=== PATIENT | female | born 1990 | race Caucasian/White ===

== ENCOUNTER 2022-02-03 14:41 | Emergency (ER) | payer BC, MEDICAID, SELFPAY ==
[2022-02-03 14:46] VITALS: BP 159/106; PULSE 107; RESP 16; TEMP 36.9; O2SAT 99
--- NOTE | 2022-02-03 16:41 | W.ED.GENADLT ---
HPI - General Adult General: Chief complaint: General Medical Stated complaint: states, here for medicine Time Seen by Provider: 02/03/22 16:36 History of Present Illness: Patient is a 31-year-old female comes to the ED for a mental health evaluation. Patient states she is currently at [facility] and they have her on Prozac She has been at [facility] for approximately 1 month. She says the Prozac has not been helping her anxiety. They sent her here to the ED to be reevaluated. Patient denies any SI, HI or any hallucinations. Denies any other symptoms and is feeling normal. Associated symptoms: Deny chest pain, dyspnea, headache(s), nausea, rash, palpitations or vomiting Review of Systems Const: Denies: fever(s), chills or fatigue Eyes: Denies: change in vision or eye discomfort ENMT: Denies: throat pain, odynophagia, nasal discharge or nasal congestion Card: Denies: chest pain, palpitations, edema, swelling of feet/ankles, dyspnea on exertion or orthopnea Resp: Denies: dyspnea, productive cough or non-productive cough GI: Denies: abdominal pain, nausea, vomiting, diarrhea, constipation or hematochezia : Denies: flank pain, dysuria or hematuria Musc: Denies: neck pain, back pain or extremity swelling Skin/Breast: Denies: rash or new lesions Neuro: Denies: headache(s), numbness in extremities or weakness in extremities Psych: Reports: anxiety; Denies: visual hallucinations, auditory hallucinations, suicidal ideation or homicidal ideation [facility] ED PFSH: Medical History No pertinent family history Surgical History No pertinent past surgical history Physical Exam Const: COMMON NORMALS: no acute distress, patient oriented x3 and alert GENERAL APPEARANCE: cooperative and comfortable HENMT: COMMON NORMALS: normocephalic HEAD & SCALP: normocephalic MOUTH: Normal oral and palatal mucosa present THROAT: posterior oropharynx normal and uvula midline Neck/C-Spine: COMMON NORMALS: supple GENERAL: Yes normal visual inspection Resp: COMMON NORMALS: normal respiratory effort, No retractions, No use of accessory muscles and clear to auscultation bilaterally AUSCULTATION: clear to auscultation bilaterally Cardio: COMMON NORMALS: regular rate, regular rhythm, S1 normal heart sound present, S2 normal heart sound present, No gallops present (Cardio), No clicks present (Cardio), No murmurs present (Cardio) and Peripheral pulses 2+ throughout RATE: regular rate RHYTHM: regular rhythm HEART SOUNDS: S1 normal heart sound present and S2 normal heart sound present PERIPHERAL PULSES: Peripheral pulses 2+ throughout GI: COMMON NORMALS: Normal to inspection, nondistended, normoactive bowel sounds present, Soft to palpation, non-tender and no masses PALPATION: Yes Soft to palpation : COMMON NORMALS: Yes no CVA tenderness BLADDER/KIDNEY EXAM: Yes no CVA tenderness Back/Pelvis: COMMON NORMALS: no CVA tenderness Extremity: COMMON NORMALS: normal to inspection Neuro: COMMON NORMALS: patient oriented x3 SENSORIUM/ORIENTATION: Yes alert GAIT: Yes Normal gait present Psych: COMMON NORMALS: mental status grossly normal, Normal thought process present, cooperative, normal affect, speech normal, activity/motor behavior normal, denies hallucinations, denies homicidal ideation and denies suicidal ideation SPEECH: Yes normal speech THOUGHT PROCESS: Normal thought process present Skin: GENERAL SKIN EXAM: dry skin Course Vital Signs: Vital signs: Vital Signs Temperature 98.5 F 02/03/22 14:46 Pulse Rate 107 H 02/03/22 14:46 Respiratory Rate 16 02/03/22 14:46 Blood Pressure 159/106 02/03/22 14:46 Pulse Oximetry 99 02/03/22 14:46 Oxygen Delivery Me thod 02/03/22 14:46 MDM - General Adult Medical Decision Making Patient is a 31-year-old female comes to the ED for psych evaluation. She denies any HI, SI or hallucinations. She has been taking Prozac since she has been at [facility] and it has not been helping with her anxiety. [facility] center here for evaluation. Vitals are stable. Exam of patient is benign and she appears in no acute distress or pain. She was stable for discharge home and diagnosed with anxiety. She was sent home with a prescription for Vistaril to help with any acute anxiety. Told to follow-up with her PCP within the next week for reevaluation. Patient understood and agreed with plan. Discharge Plan Discharge Patient Disposition: Home Clinical Impression: Anxiety Condition: Stable Prescriptions: New Vistaril 50 mg capsule 50 mg PO Q8H PRN (Reason: acute anxiety) Qty: 30 0RF Discharge Orders: Discharge ED (Routine); Ordered 02/03/22 Ordered By: Smith Edwards Discharge Diet: Regular Discharge Activity: Increase activity as tolerated Patient Instructions: Anxiety (ED) Activity Restrictions/Additional Instructions: Follow-up with medical provider as directed in the next 7-10 days for reevaluation. Take medications as prescribed. Return to the ER or your medical provider if condition worsens. Please read and understand discharge instructions. Thank you for choosing [facility] for your healthcare needs today. Please realize this is an emergency room and that we are providing you with a medical screening exam and this may not be complete and all inclusive of all the testing and or work up that you may need to determine your ailment or severity of your illness. It is very important that you follow up as instructed or that you return to the Emergency Department should you have concerns or if your condition changes or worsens in any way. Coding Level of Care Code ED Automotive Technician for Jayson Bowie Exam Comprehensive
== END 2022-02-03 17:15 | disposition home or self-care (01) ==
PROVIDERS: Emergency Provider Physician Assistant
DX: F41.9 Anxiety disorder, unspecified (principal)
CPT/HCPCS: 99283

== ENCOUNTER 2022-02-04 16:46 | Inpatient (IN) | payer BC, SELFPAY ==
[2022-02-04 16:52] VITALS: BP 145/100; PULSE 89; RESP 18; TEMP 36.8; O2SAT 97; BMI 21.6
--- NOTE | 2022-02-04 17:10 | W.ED.PSYCHS ---
HPI - Psych General: Chief Complaint: Psychiatric Symptoms Stated Complaint: 96 Hour Hold Time Seen by Provider: 02/04/22 16:51 History of Present Illness: Patient comes in from the rehab facility with a 96-hour court ordered hold. The patient is in rehab, and per the notes has been talking about her being the hands and feet of the man . Apparently the patient states that if the man tells her to hurt somebody or hurt herself she will have to do it because she is scared of them. This behavior is off and on from 1 day to the next. The patient denies suicidal or homicidal ideation. She has angry as she does not think she needs to be here. She does state that the staff over there are out to get her, which is another concern of theirs as the patient makes comments like this periodically. Review of Systems Const: Denies: fever(s) or body aches Eyes: Denies: change in vision or blurry vision ENMT: Denies: throat pain or odynophagia Card: Denies: chest pain or palpitations Resp: Denies: dyspnea or productive cough GI: Denies: abdominal pain, nausea or vomiting : Denies: flank pain or dysuria Musc: Denies: neck pain or back pain Skin/Breast: Denies: rash or pruritus Neuro: Denies: headache(s) or numbness in extremities Psych: Reports: mood swings; Denies: change in appetite Endo: Denies: polyuria or excessive sweating [facility] ED PFSH: Medical History No pertinent family history Surgical History No pertinent past surgical history Physical Exam Const: COMMON NORMALS: no acute distress, patient oriented x3, healthy appearing and alert HENMT: COMMON NORMALS: normocephalic and atraumatic HEAD & SCALP: normocephalic and atraumatic Eye: COMMON NORMALS: Equal, round and reactive pupils present and EOMs intact bilaterally PUPIL: Yes Equal, round and reactive pupils present Neck/C-Spine: COMMON NORMALS: full ROM and supple Resp: COMMON NORMALS: normal respiratory effort, No retractions and No use of accessory muscles Cardio: COMMON NORMALS: regular rate and regular rhythm RATE: regular rate RHYTHM: regular rhythm GI: COMMON NORMALS: Normal to inspection, nondistended, normoactive bowel sounds present, Soft to palpation and non-tender PALPATION: Yes Soft to palpation Back/Pelvis: COMMON NORMALS: thoracic and lumbar spine normal to inspection and no thoracic nor lumbar tenderness Extremity: COMMON NORMALS: normal to inspection and full ROM Neuro: COMMON NORMALS: patient oriented x3 SENSORIUM/ORIENTATION: Yes alert Psych: COMMON NORMALS: mental status grossly normal, cooperative, denies homicidal ideation and denies suicidal ideation OTHER: Patient is angry but cooperative Skin: COMMON NORMALS: no rashes or lesions noted and no wounds GENERAL SKIN EXAM: no rashes or lesions noted Course Vital Signs: Vital signs: Vital Signs Temperature 98.2 F 02/04/22 16:52 Pulse Rate 89 02/04/22 16:52 Respiratory Rate 18 02/04/22 16:52 Blood Pressure 145/100 02/04/22 16:52 Pulse Oximetry 97 02/04/22 16:52 Oxygen Delivery Me thod 02/04/22 16:52 [facility] - Psych Medical Decision Making Patient comes in from the rehab facility with a 96-hour court ordered hold. The patient is in rehab, and per the notes has been talking about her being the hands and feet of the man . Apparently the patient states that if the man tells her to hurt somebody or hurt herself she will have to do it because she is scared of them. This behavior is off and on from 1 day to the next. The patient denies suicidal or homicidal ideation. She has angry as she does not think she needs to be here. She does state that the staff over there are out to get her, which is another concern of theirs as the patient makes comments like this periodically. Will check labs, consult psych, and reassess. On reassessment I talked to the patient about the test results. We will start her on metronidazole for trichomonas. I discussed the case with psychiatry and we will admit for further work-up and treatment. Lab Data 02/04/22 17:24 02/04/22 17:24 Laboratory Results WBC 9.6 10^3/uL (4.0-10.0) 02/04/22 17:24 RBC 4.10 10^6/uL (4.1-5.3) 02/04/22 17:24 Hgb 13.6 g/dL (11.5-15.3) 02/04/22 17: Hct 41.7 % (37.0-47.0) 02/04/22 17: MCV 101.7 fl (81-99) H 02/04/22 17:24 MCH 33.2 pg (28.0-34.0) 02/04/22 17: MCHC 32.6 g/dL (30.0-36.0) 02/04/22 17: RDW 12.2 % (12.1-15.1) 02/04/22 17: Plt Count 364 10^3/cmm (130-400) 02/04/22 17: MPV 9.8 fL (7.4-10.4) 02/04/22 17: Neut % (Auto) 51.5 % 02/04/22 17: Lymph % (Auto) 39.3 % 02/04/22 17: [place] % (Auto) 6.3 % 02/04/22: Eos % (Auto) 2.1 % 02/04/22 17: Baso % (Auto) 0.6 % 02/04/22 17: Neut # (Auto) 4.94 10^3/uL (1.8-7.7) 02/04/22: Lymph # (Auto) 3.8 10^3/uL (0.8-4.8) 02/04/22 17:24 [place] # (Auto) 0.6 10^3/uL (0.2-0.9) 02/04/22: Eos # (Auto) 0.2 10^3/uL (0.0-0.8) 02/04/22 17: Baso # (Auto) 0.1 10^3/uL (0.0-0.1) 02/04/22: Nucleated RBC % (auto) 0 % 02/04/22: Nucleated RBCs # 0.0 /100WBC 02/04/22 17:24 Sodium 139 mmol/L (136-145) 02/04/22 17:24 Potassium 4.4 mmol/L (3.5-5.1) 02/04/22 17: Chloride 102 mmol/L (98-107) 02/04/22 17:24 Carbon Dioxide 29 mmol/L (22-29) 02/04/22 17:24 Anion Gap 12.4 (5-19) 02/04/22 17:24 BUN 12 mg/dL (6-20) 02/04/22 17:24 Creatinine 0.7 mg/dL (0.5-0.9) 02/04/22 17:24 GFR Calculation 96.4 mL/min (90-130) 02/04/22 17:24 Glucose 76 mg/dL (65-115) 02/04/22 17:24 Calculated Osmolality 287 mOsm/kg (285-295) 02/04/22 17:24 Calcium 9.2 mg/dL (8.5-10.5) 02/04/22 17:24 Total Bilirubin 0.3 mg/dL (0.15-1.2) 02/04/22 17:24 AST 13 U/L (0-32) 02/04/22 17:24 ALT 11 U/L (0-33) 02/04/22 17:24 Alkaline Phosphatase 76 U/L (35-105) 02/04/22 17:24 Total Protein 7.1 g/dL (6.6-8.7) 02/04/22 17:24 Albumin 4.5 g/dL (3.5-5.2) 02/04/22 17:24 Globulin 2.6 g/dL (1.3-4.6) 02/04/22 17:24 HCG, Qual Negative (Negative) 02/04/22 19:21 Urine Color Yellow (Yellow) 02/04/22 19:21 Urine Appearance Clear (CLEAR) 02/04/22 19:21 Urine pH 5 (5-7) 02/04/22 19:21 Ur Specific [place] 1.020 (1.005-1.030) 02/04/22 19:21 Urine Protein Neg (Negative) 02/04/22 19:21 Urine Glucose (UA) Norm (Normal) 02/04/22 19:21 Urine Ketones Negative (Negative) 02/04/22 19:21 Urine Blood Trace (Negative) H 02/04/22 19:21 Urine Nitrate Negative (Negative) 02/04/22 19:21 Urine Bilirubin Neg (Negative) 02/04/22 19: Urine Urobilinogen Norm mg/dL (Negative) 02/04/22 19:21 Ur Leukocyte Esterase 2+ (Negative) H 02/04/22 19:21 Urine RBC 0-4 /hpf (0-2) H 02/04/22 19:21 Urine WBC 5-10 /hpf (0-5) H 02/04/22 19:21 Ur Squamous Epith Cells 5-10 /hpf (0-5) H 02/04/22 19:21 Amorphous Sediment Not Reportable 02/04/22 19:21 Urine Bacteria 3+ /hpf (NONE) H 02/04/22 19:21 Urine Trichomonas 2+ /hpf H 02/04/22 19:21 Salicylates < 0.3 mg/dL (3-10) L 02/04/22 17:24 Urine Opiates Screen Negative ng/mL (Negative) 02/04/22 19:21 Acetaminophen < 5.0 ug/mL (10-30) L 02/04/22 17:24 Ur Barbiturates Screen Negative ng/mL (Negative) 02/04/22 19:21 Ur Phencyclidine Scrn Negative ng/mL (Negative) 02/04/22 19:21 Ur Amphetamines Screen Negative ng/mL (Negative) 02/04/22 19:21 U Benzodiazepines Scrn Negative ng/mL (Negative) 02/04/22 19:21 Urine Cocaine Screen Negative ng/mL (Negative) 02/04/22 19:21 U Marijuana (THC) Screen Negative ng/mL (Negative) 02/04/22 19:21 Ethyl Alcohol < 10 mg/dL (0-10) 02/04/22 17:24 SARS-CoV-2 Ag (Rapid) negative (Negative) 02/04/22 19:20 Discharge Plan Discharge Patient Disposition: Admitted As Inpatient Clinical Impression: Acute psychosis, Infection due to trichomonas Condition: Stable Prescriptions: No Action Vistaril 50 mg capsule 50 mg PO Q8H PRN (Reason: acute anxiety) Qty: 30 0RF Coding Level of Care Code ED Electronic Communications Technician for Chg Fwd Exam Comprehensive
[2022-02-04 17:36] LABS: Basophils # 0.1 10^3/uL (0.0-0.1); Basophils % 0.6 %; Eosinophils # 0.2 10^3/uL (0.0-0.8); Eosinophils % 2.1 %; Hematocrit 41.7 % (37.0-47.0); Hemoglobin 13.6 g/dL (11.5-15.3); Lymphocytes # 3.8 10^3/uL (0.8-4.8); Lymphocytes % 39.3 %; Mean Corpuscular HGB Conc 32.6 g/dL (30.0-36.0); Mean Corpuscular Hemoglobin 33.2 pg (28.0-34.0); Mean Corpuscular Volume 101.7 fl (81-99); Mean Platelet Volume 9.8 fL (7.4-10.4); Monocytes # 0.6 10^3/uL (0.2-0.9); Monocytes % 6.3 %; Neutrophils # 4.94 10^3/uL (1.8-7.7); Neutrophils % 51.5 %; Nucleated Red Blood Cells % 0 %; Platelet Count 364 10^3/cmm (130-400); Red Cell Distribution Width 12.2 % (12.1-15.1); White Blood Count 9.6 10^3/uL (4.0-10.0)
[2022-02-04 17:55] LABS: Alanine Aminotransferase 11 U/L (0-33); Albumin Level 4.5 g/dL (3.5-5.2); Alkaline Phosphatase 76 U/L (35-105); Anion Gap 12.4 (5-19); Aspartate Amino Transferase 13 U/L (0-32); Blood Urea Nitrogen 12 mg/dL (6-20); Calcium 9.2 mg/dL (8.5-10.5); Carbon Dioxide 29 mmol/L (22-29); Chloride 102 mmol/L (98-107); Globulin 2.6 g/dL (1.3-4.6); Glomerular Filtration Rate 96.4 mL/min (90-130); Glucose 76 mg/dL (65-115); Osmolality Calculated 287 mOsm/kg (285-295); Potassium 4.4 mmol/L (3.5-5.1); Sodium 139 mmol/L (136-145); Total Bilirubin 0.3 mg/dL (0.15-1.2); Total Protein 7.1 g/dL (6.6-8.7)
[2022-02-04 18:02] LABS: Acetaminophen < 5.0 ug/mL (10-30); Alcohol Level < 10 mg/dL (0-10); Salicylate < 0.3 mg/dL (3-10)
[2022-02-04 19:45] LABS: HCG Qualitative Urine. Negative (Negative)
[2022-02-04 19:48] LABS: Amphetamines Screen Urine Negative (Negative); Barbiturates Screen Urine Negative (Negative); Benzodiazepines Screen Urine Negative (Negative); Cocaine Screen Urine Negative (Negative); Opiate Screen Urine Negative (Negative); PCP Screen Urine Negative (Negative); THC Screen Urine Negative (Negative)
[2022-02-04 19:50] LABS: Add Urine Microscopic? YES; Bacteria Urine 3+ /hpf; Bilirubin Urine Neg (Negative); Blood Urine Trace (Negative); Glucose Urine UA Norm (Normal); Ketones Urine Negative (Negative); Leukocyte Esterase Urine 2+ (Negative); Nitrate Urine Negative (Negative); Protein Urine Neg (Negative); RBC Urine 0-4 /hpf (0-2); Trichomonas Urine 2+ /hpf; Urine Appearance Clear (CLEAR); Urine Color Yellow (Yellow); Urobilinogen Urine Norm (Negative); pH Urine 5 (5-7)
[2022-02-04 19:51] LABS: Add Urine Culture? Yes
[2022-02-04 19:56] LABS: SARS Covid-2 Antigen negative (Negative)
[2022-02-04 20:28] VITALS: BP 153/99; PULSE 90; RESP 14
[2022-02-04] MEDS: metroNIDAZOLE 500 MG Tablet PO (20:38)
[2022-02-04 21:00] VITALS: RESP 16
[2022-02-04 22:10] VITALS: RESP 15
[2022-02-04 22:27] VITALS: BP 135/100; PULSE 94; RESP 18; TEMP 36.7; O2SAT 98
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
[2022-02-05 14:00] VITALS: BP 122/76; PULSE 79; RESP 16; TEMP 36.7; O2SAT 97
[2022-02-05] MEDS: quetiapine 100 mg Tablet 200 MG PO (20:13)
[2022-02-05 20:31] VITALS: BP 139/86; PULSE 87; RESP 16; TEMP 36.6; O2SAT 98
[2022-02-06 06:00] VITALS: RESP 16
[2022-02-06] MEDS: metroNIDAZOLE 500 MG Tablet PO ×2 (12:01→21:16)
[2022-02-06 14:00] VITALS: BP 130/86; PULSE 84; RESP 16; TEMP 36.6; O2SAT 98
--- NOTE | 2022-02-06 16:55 | W.PM.NPUPNS ---
Subjective NPU Subjective: Patient presented today reporting that she is feeling better on medication that initiated. She felt very disorganized story about how he got to [facility] and then ultimately it was forthcoming on her stimulant/cocaine/methamphetamine challenges but was very dismissive and downplaying of the the circumstances that led to her being at [facility]. She did not plan to return to timely once she was stabilized. We discussed trying to understand her history a bit more. She denied history of or current psychosis but seems to be having some thought disorder. Mental Status Exam MSE Comments: This is a slender white female in hospital scrubs with limited grooming and eye contact. No abnormal movements except for mild psychomotor agitation. Somewhat cooperative with exam in no acute distress with a somewhat laissez-faire attitude. Speech was mostly normal rate and decreased volume. Mood described as okay, affect. Thought process linear. Thought content: Patient denied suicidal or homicidal ideation, there are no delusions reported with concern for paranoia existed, she denied auditory hallucinations or history thereof. Attention and concentration was limited but appeared improving and memory was unreliable but none were formally tested. Alert and oriented x3. Insight, judgment and impulse control appeared impaired. Vitals/I&O/Wt Last Vital Signs Temp 98.2 F 02/06/22 20:40 Pulse 83 02/06/22 20:40 Resp 16 02/06/22 20:40 BP 149/89 02/06/22 20:40 Pulse Ox 99 02/06/22 20:40 O2 Del Method 02/06/22 20:40 Data NPU 02/04/22 17:24 02/04/22 17:24 Micro: Microbiology 02/04/22 19:21 Urine Culture - Preliminary Urine,Clean Catch Microbiology 02/04/22 19:21 Urine,Clean Catch Urine Culture - Preliminary A&P Assessment and plan (1) Bipolar disorder, unspecified: (2) Methamphetamine abuse: Plan Patient is a 31-year-old white female with a history of stimulant abuse currently at the [facility] with reports of increased irritability poor frustration tolerance and agitation with possible hypomania currently endorsing increased anger and sleep disruption. Patient will continue to require acute inpatient hospitalization with medication adjustments planned. 1.? D/C Prozac, Start Seroquel 200mg at night, 2.? Encourage individual, group and milieu therapy 3.? Continue q-15 minute check for safety 4.? Recommend sober living treatment at the highest level of care to which the patient is willing to commit. Attestations NPU Medical Necessity Statement*: Inpatient hospitalization is medically necessary and the clinically appropriate intervention at this time. We will monitor medications and make changes as indicated. Likely length of stay 4-6 days. Coding Level of Care Code Acute Motivational Speaker for [facility] Fwd Diagnoses Bipolar disorder, unspecified F31.9 Methamphetamine abuse F15.10
[2022-02-06 20:40] VITALS: BP 149/89; PULSE 83; RESP 16; TEMP 36.8; O2SAT 99
[2022-02-06] MEDS: quetiapine 100 mg Tablet 200 MG PO (21:16)
[2022-02-07 06:00] VITALS: BP 126/88; PULSE 86; RESP 16; TEMP 36.3; O2SAT 100
[2022-02-07] MEDS: metroNIDAZOLE 500 MG Tablet PO ×2 (08:26→17:34)
--- NOTE | 2022-02-07 13:36 | W.PM.NPUPNS ---
Subjective NPU Subjective: Patient returns today reporting that she is feeling a little better. She expressed some feeling paranoid beliefs that she is being held on a hold until Thursday and so there is no way that she could be released before then. We did discuss that we were attending communicating her needs to collaborate with them on her return and that Thursday is the more likely date of that return. She reports that the medication is working well and she is sleeping better. She discussed a fairly na?ve thought about her sobriety and returning home to the [facility] with a elvia who also struggles with addiction. She cannot really articulate how her addiction was reportedly not that bad but she seems to be required to return to [facility]. Mental Status Exam MSE Comments: This is a slender white female in hospital scrubs with limited grooming and eye contact. No abnormal movements except for mild psychomotor agitation. Somewhat cooperative with exam in no acute distress with a somewhat laissez-faire attitude. Speech was mostly normal rate and decreased volume with a very strong accent. Mood described as okay, affect congruent. Thought process linear. Thought content: Patient denied suicidal or homicidal ideation, there are no delusions reported with concern for paranoia existed, she denied auditory hallucinations or history thereof. Attention and concentration was limited but appeared improving and memory was unreliable but none were formally tested. Alert and oriented x3. Insight, judgment and impulse control appeared impaired. Vitals/I&O/Wt Last Vital Signs Temp 97.4 F L 02/07/22 06:00 Pulse 86 02/07/22 06:00 Resp 16 02/07/22 06:00 BP 126/88 02/07/22 06:00 Pulse Ox 100 02/07/22 06:00 O2 Del Method 02/07/22 06:00 Data NPU 02/04/22 17:24 02/04/22 17:24 Micro: Microbiology 02/04/22 19:21 Urine Culture - Final Urine,Clean Catch Microbiology 02/04/22 19:21 Urine,Clean Catch Urine Culture - Final A&P Assessment and plan (1) Bipolar disorder, unspecified: (2) Methamphetamine abuse: Plan Patient is a 31-year-old white female with a history of stimulant abuse currently at the [facility] with reports of increased irritability poor frustration tolerance and agitation with possible hypomania currently endorsing increased anger and sleep disruption. Patient will continue to require acute inpatient hospitalization with medication adjustments planned. 1.? D/C'd Prozac, Started Seroquel 200mg at night, 2.? Encourage individual, group and milieu therapy 3.? Continue q-15 minute check for safety 4.? Recommend sober living treatment at the highest level of care to which the patient is willing to commit. Attestations NPU Medical Necessity Statement*: Inpatient hospitalization is medically necessary and the clinically appropriate intervention at this time. We will monitor medications and make changes as indicated. Likely length of stay 3-5 days. Coding Level of Care Code Acute Research Associate Policy for g Fwd Diagnoses Bipolar disorder, unspecified F31.9 Methamphetamine abuse F15.10
[2022-02-07 14:00] VITALS: BP 144/86; PULSE 70; RESP 18; TEMP 36.8; O2SAT 99
[2022-02-07 19:40] VITALS: BP 152/99; PULSE 83; RESP 17; TEMP 36.7; O2SAT 98
[2022-02-07] MEDS: quetiapine 100 mg Tablet 200 MG PO (20:36)
[2022-02-08 06:00] VITALS: BP 125/87; PULSE 82; RESP 16; TEMP 36.6; O2SAT 100
[2022-02-08] MEDS: metroNIDAZOLE 500 MG Tablet PO ×2 (08:46→17:33)
--- NOTE | 2022-02-08 11:37 | W.PM.NPUPNS ---
Subjective NPU Subjective: Patient presents today seeming to be in better spirits. She reports she is eating and sleeping better and is prepared to return to [facility] on Thursday. She denies any new concerns and certainly seemed less confused and more cogent. She denies any issues with medications. Mental Status Exam MSE Comments: This is a slender white female in hospital scrubs with limited grooming and eye contact. No abnormal movements except for mild psychomotor agitation. Somewhat cooperative with exam in no acute distress with a somewhat laissez-faire attitude. Speech was mostly normal rate and decreased volume with a very strong accent. Mood described as fine, affect congruent. Thought process linear and organized. Thought content: Patient denied suicidal or homicidal ideation, there are no delusions reported, but concern for paranoia existed, she denied auditory or visual hallucinations or history thereof. Attention and concentration was improving and memory was feeling more reliable but none were formally tested. Alert and oriented x3. Insight and judgment are improving and impulse control appeared limited, but improving. Vitals/I&O/Wt Last Vital Signs Temp 97.8 F 02/08/22 06:00 Pulse 82 02/08/22 06:00 Resp 16 02/08/22 06:00 BP 125/87 02/08/22 06:00 Pulse Ox 100 02/08/22 06:00 O2 Del Method 02/07/22 06:00 Data NPU 02/04/22 17:24 02/04/22 17:24 Micro: Microbiology 02/04/22 19:21 Urine Culture - Final Urine,Clean Catch Microbiology 02/04/22 19:21 Urine,Clean Catch Urine Culture - Final A&P Assessment and plan (1) Bipolar disorder, unspecified: (2) Methamphetamine abuse: Plan Patient is a 31-year-old white female with a history of stimulant abuse currently at the [facility] with reports of increased irritability poor frustration tolerance and agitation with possible hypomania currently endorsing increased anger and sleep disruption. Patient will continue to require acute inpatient hospitalization with medication adjustments planned. 1.? D/C'd Prozac, Started Seroquel 200mg at night, 2.? Encourage individual, group and milieu therapy 3.? Continue q-15 minute check for safety 4.? Recommend sober living treatment at the highest level of care to which the patient is willing to commit. Attestations NPU Medical Necessity Statement*: Inpatient hospitalization is medically necessary and the clinically appropriate intervention at this time. We will monitor medications and make changes as indicated. Likely length of stay 2-4 days. Coding Level of Care Code Acute Limnologist for g Fwd Diagnoses Bipolar disorder, unspecified F31.9 Methamphetamine abuse F15.10
[2022-02-08 14:00] VITALS: BP 143/83; PULSE 85; RESP 16; TEMP 36.6; O2SAT 100
[2022-02-08 19:56] VITALS: BP 154/112; PULSE 78; RESP 20; TEMP 36.6; O2SAT 99
[2022-02-08] MEDS: quetiapine 100 mg Tablet 200 MG PO (21:59)
[2022-02-09 06:00] VITALS: BP 118/83; PULSE 95; RESP 16; TEMP 37; O2SAT 98
[2022-02-09] MEDS: metroNIDAZOLE 500 MG Tablet PO ×2 (08:39→18:38)
--- NOTE | 2022-02-09 13:40 | W.PM.NPUPNS ---
Subjective NPU Subjective: Patient presents today reporting that things are going okay. She reports an openness to return to [facility] and report that she is feeling ready to do so. We agreed we work with the treatment team in the morning to contact currently and see where they are with her return. She is sleeping well and eating fine and denying any issues or concerns. Mental Status Exam MSE Comments: This is a slender white female in hospital scrubs with limited grooming and eye contact. No abnormal movements except for mild psychomotor agitation. Somewhat cooperative with exam in no acute distress with a somewhat laissez-faire attitude. Speech was mostly normal rate and decreased volume with a very strong accent. Mood described as fine, affect congruent. Thought process linear and organized. Thought content: Patient denied suicidal or homicidal ideation, there are no delusions reported or noted, she denied auditory or visual hallucinations or history thereof. Attention and concentration was improving and memory was feeling more reliable but none were formally tested. Alert and oriented x3. Insight and judgment are improving and impulse control appeared limited, but improving. Vitals/I&O/Wt Last Vital Signs Temp 98.6 F 02/09/22 06:00 Pulse 95 02/09/22 06:00 Resp 16 02/09/22 06:00 BP 118/83 02/09/22 06:00 Pulse Ox 98 02/09/22 06:00 O2 Del Method 02/09/22 06:00 Weight last 48 hrs Weight 63.957 kg Data NPU 02/04/22 17:24 02/04/22 17:24 A&P Assessment and plan (1) Bipolar disorder, unspecified: (2) Methamphetamine abuse: Plan Patient is a 31-year-old white female with a history of stimulant abuse currently at the [facility] with reports of increased irritability poor frustration tolerance and agitation with possible hypomania currently endorsing increased anger and sleep disruption. Patient will continue to require acute inpatient hospitalization with medication adjustments planned. 1.? D/C'd Prozac, Started Seroquel 200mg at night, 2.? Encourage individual, group and milieu therapy 3.? Continue q-15 minute check for safety 4.? Recommend sober living treatment at the highest level of care to which the patient is willing to commit. Attestations NPU Medical Necessity Statement*: Inpatient hospitalization is medically necessary and the clinically appropriate intervention at this time. We will monitor medications and make changes as indicated. Likely length of stay 1-3 days. Coding Level of Care Code Acute Color Making Supervisor for [facility] Fwd Diagnoses Bipolar disorder, unspecified F31.9 Methamphetamine abuse F15.10
[2022-02-09 14:00] VITALS: BP 154/103; PULSE 88; RESP 16; TEMP 36.6; O2SAT 97
[2022-02-09] MEDS: quetiapine 100 mg Tablet 200 MG PO (20:49)
[2022-02-09 21:19] VITALS: BP 159/101; PULSE 92; RESP 16; TEMP 36.8; O2SAT 99
[2022-02-10 06:00] VITALS: BP 136/88; PULSE 94; RESP 16; TEMP 36.7; O2SAT 99
[2022-02-10] MEDS: metroNIDAZOLE 500 MG Tablet PO (08:41)
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
[2022-02-10 12:31] VITALS: BP 136/88; PULSE 94; RESP 16; TEMP 36.7; O2SAT 99
[2022-02-10 13:56] VITALS: BP 136/88; PULSE 94; RESP 16; TEMP 36.7; O2SAT 99
== END 2022-02-10 14:15 | disposition home or self-care (01) | DRG 885 ==
LOC: ER 20:31 → NP 21:15
PROVIDERS: Admitting Provider Psychiatry & Neurology Psychiatry; Emergency Provider Emergency Medicine; Visit Provider Psychiatry & Neurology Psychiatry
DX: F31.9 Bipolar disorder, unspecified (principal); F15.11 Other stimulant abuse, in remission
CPT/HCPCS: 80053; 80306; 80307; 81001; 81025; 85025; 87086; 87426; 97150; 97165; 99285

== ENCOUNTER 2023-09-25 12:35 | Emergency (ER) | payer MEDICAID, SELFPAY ==
[2023-09-25 13:24] VITALS: BP 151/110; PULSE 108; RESP 16; TEMP 36.6; O2SAT 98
--- NOTE | 2023-09-25 13:53 | PC.NURSE ---
pt placed in vertical flow by direction of charge nurse. pt denies SI/HI at this time. suicide precautions were not taken due to not having the appropriate set up in vertical flow.
--- NOTE | 2023-09-25 15:12 | ED.C_ITS ---
Documented by User: DILCIA Alfred 09/25/23 15:17 HPI - Psych General: Chief Complaint: Psychiatric Symptoms Stated Complaint: Depression Time Seen by Provider: 09/25/23 14:15 Source: patient Mode of arrival: ambulatory Limitations: no limitations History of Present Illness: Patient is a 33-year-old female who presents the emergency department from [facility] due to worsening depression and issues with sleep. Patient states that she was told to come to the emergency department for changes of her psychiatric meds. She sees psychiatrist via telehealth weekly, who prescribes her medications. At this time she is on bupropion as well as topiramate and olanzapine prescribed to her for sleeping. She is not suicidal or homicidal at this time and does not endorse any hallucinations, and she stresses this as she states she does not want to come into the psychiatric unit as she has been here multiple times before. She states she just wants to know if there is anything we can do for her meds for depression and sleeping. She has no other complaints at this time. MD complaint: other (Depressed) Duration: constant History of same: Yes Context: new medication(s) Associated psychiatric symptoms: none Associated symptoms: Reports no associated symptoms and depression; Deny auditory hallucinations, visual hallucinations, homicidal ideation or suicidal ideation Review of Systems General: Reports: 10 or more systems reviewed and unremarkable except in HPI and below Const: Denies: fever(s), chills or fatigue Eyes: Denies: change in vision ENMT: Denies: throat pain, ear or mastoid pain or nasal discharge Card: Denies: chest pain, palpitations, swelling of feet/ankles or lightheadedness Resp: Denies: dyspnea, productive cough or wheezing GI: Denies: abdominal pain, nausea, vomiting, diarrhea or constipation : Denies: flank pain, difficulty voiding, dysuria or urinary frequency Musc: Denies: neck pain, back pain or joint pain Skin/Breast: Denies: rash Neuro: Denies: headache(s), numbness in extremities or weakness in extremities Psych: Reports: depression and sleeping less; Denies: visual hallucinations, auditory hallucinations, tactile hallucinations, suicidal ideation or homicidal ideation PFS ED PFSH: Medical History No pertinent family history Surgical History No pertinent past surgical history Physical Exam Const: COMMON NORMALS: no acute distress, patient oriented x3 and no limitations GENERAL APPEARANCE: cooperative, comfortable and well developed ORIENTATION/CONSCIOUSNESS: Yes awake, Yes oriented to person, Yes oriented to place and Yes oriented to time HENMT: COMMON NORMALS: normocephalic, atraumatic and hearing grossly normal bilaterally HEAD & SCALP: normocephalic and atraumatic Eye: COMMON NORMALS: Equal, round and reactive pupils present, EOMs intact bilaterally and conjunctivae normal CONJUNCTIVA: Yes conjunctivae normal PUPIL: Yes Equal, round and reactive pupils present Neck/C-Spine: COMMON NORMALS: full ROM, supple and no JVD Resp: COMMON NORMALS: normal respiratory effort, No retractions, No use of accessory muscles and clear to auscultation bilaterally AUSCULTATION: clear to auscultation bilaterally Cardio: COMMON NORMALS: no JVD, regular rate, regular rhythm, No clicks present (Cardio), No murmurs present (Cardio) and No rub (Cardio) RATE: regular rate RHYTHM: regular rhythm Extremity: COMMON NORMALS: normal to inspection, full ROM and capillary refill normal Neuro: COMMON NORMALS: patient oriented x3, CN's II-XII intact bilaterally, moves all extremities, no focal motor deficits and no sensory deficits noted SENSORIUM/ORIENTATION: Yes oriented to person, Yes oriented to place and Yes oriented to time Psych: COMMON NORMALS: mental status grossly normal, Normal thought process present and speech normal APPEARANCE: Yes grossly normal ATTITUDE: Yes calm ACTIVITY/MOTOR BEHAVIOR: Yes appropriate eye contact SPEECH: Yes normal speech MOOD & AFFECT: Yes euthymic mood THOUGHT PROCESS: Normal thought process present THOUGHT CONTENT: Yes Normal thought content present ATTENTION/CONCENTRATION: Yes attention grossly intact INSIGHT: Good insight present (Psych) JUDGEMENT: Good judgement present (Psych) Skin: COMMON NORMALS: no rashes or lesions noted GENERAL SKIN EXAM: no rashes or lesions noted Course Vital Signs: Vital signs: Vital Signs Temperature 97.9 F 09/25/23 15:26 Pulse Rate 98 09/25/23 15:26 Respiratory Rate 16 09/25/23 15:26 Blood Pressure 148/99 09/25/23 15:26 Pulse Oximetry 99 09/25/23 15:26 Oxygen Delivery Me thod Room Air 09/25/23 13:24 MDM - Psych Medical Decision Making Patient presented for medication changes, of which I informed her we do not do here in the emergency department for psychiatric medications. She does have a psychiatrist that she sees every week by telehealth, and she is due to see him early this next week and I informed her to discuss her medications and any changes that need to be made. She clarifies more than once that she is not suicidal, homicidal, and is not having any hallucinations. She just states that she does not think her meds are helping and thinks they are affecting her sleep, and reviewing her meds she is on 2 sleep medications as well as multiple [id number] remedies, of which I told her to just take her prescribed sleep meds and try to cease her smoking habits as this might be playing a role in her decreased sleep. She states that she feels good to go home and that she will follow-up on the telehealth visit as scheduled. Care of patient discussed with Dr. Gómez who agrees with disposition at this time. No radiology studies performed this visit Discharge Plan Discharge Patient Disposition: Home Clinical Impression: Depression Qualifiers: Depression Type: unspecified Qualified Code(s): F32.A - Depression, unspecified Condition: Stable Prescriptions: No Action quetiapine 100 mg Tablet 200 mg PO BEDTIME 30 Days Qty: 60 1RF Vistaril 50 mg capsule 50 mg PO Q8H PRN (Reason: acute anxiety) 30 Days Qty: 90 1RF Discharge Orders: Discharge ED (Routine); Ordered 09/25/23 Ordered By: Francisco Javier Johnson Discharge Diet: Usual diet Discharge Activity: Resume usual activity Patient Instructions: Depression (ED), Insomnia (ED) Activity Restrictions/Additional Instructions: Please keep follow-up next week to discuss medications. If you develop any thoughts of harming yourself or others, or develop any hallucinations, please return immediately for reevaluation. Otherwise continue medications at home as normal. Coding Level of Care Code ED [employer] [facility] F[employer] Documented by User: Tim Gómez, 09/25/23 18:04 HPI - Psych General: Chief Complaint: Psychiatric Symptoms Stated Complaint: Depression Time Seen by Provider: 09/25/23 14:15 PFS ED PFSH: Medical History No pertinent family history Surgical History No pertinent past surgical history Course Vital Signs: Vital signs: Vital Signs Temperature 97.9 F 09/25/23 15:26 Pulse Rate 98 09/25/23 15:26 Respiratory Rate 16 09/25/23 15:26 Blood Pressure 148/99 09/25/23 15:26 Pulse Oximetry 99 09/25/23 15:26 Oxygen Delivery Me thod Room Air 09/25/23 13:24 MDM - Psych Medical Decision Making Patient presented for medication changes, of which I informed her we do not do here in the emergency department for psychiatric medications. She does have a psychiatrist that she sees every week by telehealth, and she is due to see him early this next week and I informed her to discuss her medications and any changes that need to be made. She clarifies more than once that she is not suicidal, homicidal, and is not having any hallucinations. She just states that she does not think her meds are helping and thinks they are affecting her sleep, and reviewing her meds she is on 2 sleep medications as well as multiple [id number] remedies, of which I told her to just take her prescribed sleep meds and try to cease her smoking habits as this might be playing a role in her decreased sleep. She states that she feels good to go home and that she will f ollow-up on the telehealth visit as scheduled. Care of patient discussed with Dr. Gómez who agrees with disposition at this time. Chart reviewed and patient discussed with midlevel. Agree with assessment and plan. Discharge Plan Discharge Patient Disposition: Home Clinical Impression: Depression Qualifiers: Depression Type: unspecified Qualified Code(s): F32.A - Depression, unspecified Condition: Stable Prescriptions: No Action quetiapine 100 mg Tablet 200 mg PO BEDTIME 30 Days Qty: 60 1RF Vistaril 50 mg capsule 50 mg PO Q8H PRN (Reason: acute anxiety) 30 Days Qty: 90 1RF Discharge Orders: Discharge ED (Routine); Ordered 09/25/23 Ordered By: Francisco Javier Johnson Discharge Diet: Usual diet Discharge Activity: Resume usual activity Patient Instructions: Depression (ED), Insomnia (ED) Activity Restrictions/Additional Instructions: Please keep follow-up next week to discuss medications. If you develop any thoughts of harming yourself or others, or develop any hallucinations, please return immediately for reevaluation. Otherwise continue medications at home as normal. Coding Level of Care Code ED Associate [employer] for [employer] [employer]ie
[2023-09-25 15:26] VITALS: BP 148/99; PULSE 98; RESP 16; TEMP 36.6; O2SAT 99
== END 2023-09-25 15:26 | disposition home or self-care (01) ==
PROVIDERS: Emergency Provider Physician Assistant
DX: F32.A Depression, unspecified (principal)
CPT/HCPCS: 99281